=== PATIENT | male | born 1985 | race Caucasian/White ===

== ENCOUNTER 2018-12-28 19:19 | Emergency (ER) | payer OTHER ==
[2018-12-28 19:42] VITALS: BP 140/68
--- NOTE | 2018-12-28 20:08 | ED Physician Documentation ---
PD HPI MALE - Stated complaint Stated Complaint: MALE /POSTERIOR - Chief complaint Chief Complaint: Abd Pain - History obtained from History obtained from: Patient - History of Present Illness Timing - onset: How many days ago (5) Timing - duration: Days (5) Timing - details: Gradual onset ( worsening), Constant, Still present in ED Pain level now: 5 Associated symptoms: Abdominal pain (Feels constipated). No: Dysuria, Urinary frequency, Unable to urinate, Hematuria, Discharge PD HPI MALE CONTRIB FACTORS: Sexually active Similar symptoms before: Has not had sx before Recently seen: Not recently seen - Additional information Additional information: This is a 33-year-old man who presents with complaints that he has pain in his "butt". He thinks is a hemorrhoid. It started about 5 days ago but the pain is been getting increasingly more severe since then it is now about a 4-5 out of 10. He started using baby wipes immediately and applying Preparation H but it is not getting any better. He has not seen any blood. Denies history of hemorrhoids. Says it is very painful to sit directly down and any increase in intra-abdominal pressure such as coughing or trying to bear down for a bowel movement is very very painful. He said no nausea vomiting. No fever. He has had some lower abdominal discomfort and just a little bit of urine discomfort right as he starts the urine stream but no hematuria or penile discharge. He has been sitting in a hot bath with provided some relief. Review of Systems Constitutional: denies: Fever GI: reports: Abdominal Pain, Constipation. denies: Nausea, Vomiting, Bloody / black stool : denies: Dysuria, Frequency, Hematuria, Discharge PD PAST MEDICAL HISTORY - Present Medications Home Medications: Ambulatory Orders Medication Instructions Recorded Confirmed Dextroamphetamine/Amphetamine 10 mg PO DAILY 12/28/18 12/28/18 [Adderall 10 mg Tablet] Dextroamphetamine/Amphetamine 25 mg PO DAILY 12/28/18 12/28/18 [Adderall Xr 25 mg Capsule] Docusate Sodium 250Mg Capsule 250 mg PO DAILY #30 capsule 12/28/18 [Colace 250Mg Capsule] Hydrocodone/Acetaminophen 1 - 2 each PO Q6H PRN #14 tablet 12/28/18 [Hydrocodon-Acetaminophen 5-325] Loratadine [Claritin] 10 mg PO DAILY 12/28/18 12/28/18 Phenylephrine HCl/[place] Butter 1 each RC BID #10 supp.rect 12/28/18 [Preparation H Suppository] RX: Acyclovir 200 mg PO 12/28/18 - Allergies Allergies/Adverse Reactions: Allergies Allergy/AdvReac Type Severity Reaction Status Date / Time No Known Drug Allergies Allergy Verified 12/28/18 19:42 PD ED PE NORMAL - Vitals Vital signs reviewed: Yes (Well-developed well-nourished pleasant 33-year-old man he is notably sittin) - General General: Alert and oriented X 3, No acute distress, Well developed/nourished - HEENT HEENT: Atraumatic - Cardiac Cardiac: RRR, No murmur - Abdomen Abdomen: Normal bowel sounds, Soft, Other (There was some tenderness in the left lower quadrant. He states it makes him feel like he has to have a bowel movement.) - Male Male : Deferred - Back Back: Other (The skin in the gluteal crease is slightly inflamed which I believe to be from the baby wipes and the moisture associated with that. There is a thrombosed internal hemorrhoid at the 9 o'clock position that is exquisitely tender.) - Derm Derm: Normal color, Warm and dry, No rash - Neuro Neuro: Alert and oriented X 3 Results - Vitals Vitals: Vital Signs - 24 hr 12/28/18 19:37 Temperature 36.7 C Heart Rate 71 Respiratory 15 Rate Blood Pressure 140/68 H O2 Saturation 100 Oxygen O2 Source Room air Procedures - General procedure General procedure: Incision and drainage of thrombosed hemorrhoid.The hemorrhoid and anus were prepped with Betadine. Anesthesia was achieved with 1% lidocaine and an incision was made in the hemorrhoid was able to milk out quite a few clots. There was still some clot and it felt like there was a second hemorrhoid after I decompressed the first 1 so that one was also anesthetized and incised. I was able to milk out quite a bit more clot from that one as well. Patient tolerated this well although he did get very diaphoretic. We did end up giving him 2mg of Dilaudid IM for the pain. PD MEDICAL DECISION MAKING - ED course Complexity details: d/w patient, d/w family ED course: I discussed with the patient that I do not think this is going to get better with topical treatments and he will feel great relief if we incised and drained that hemorrhoid and he is agreeable. Departure - Departure Disposition: 01 Home, Self Care Clinical Impression: Hemorrhoid thrombosis Condition: Good Instructions: ED Hemorrhoids Prescriptions: Docusate Sodium 250Mg Capsule [Colace 250Mg Capsule] 250 mg PO DAILY #30 capsule Hydrocodone/Acetaminophen [Hydrocodon-Acetaminophen 5-325] 1 - 2 each PO Q6H PRN #14 tablet PRN Reason: pain Phenylephrine HCl/[place] Butter [Preparation H Suppository] 1 each RC BID #10 supp.rect Comments: Do an Epsom salt sitz baths 2-3 times a day. Take ibuprofen if needed for pain. Use the suppository twice a day and after each bowel movement. Take the stool softener to prevent further constipation. Follow-up with your primary care provider for recheck in 2-3 days if your symptoms persist. Take the hydrocodone if needed for pain but do not drive or operate machinery if taking. Discharge Date/Time: 12/28/18 21:42
[2018-12-28] MEDS ORDERED: BUFFERED LIDOCAINE 10 ML SYRINGE SUBQ STA (20:26)
[2018-12-28] MEDS ORDERED: HYDROmorphone 2 MG/ML VIAL ONE (21:14)
[2018-12-28] MEDS ORDERED: PROMETHAZINE 25 MG TABLET ONE (21:15)
[2018-12-28] MEDS ORDERED: HYDROmorphone 2 MG/ML VIAL IM STA (21:38)
[2018-12-28] MEDS ORDERED: PROMETHAZINE 25 MG TABLET PO STA (21:39)
== END 2018-12-28 21:42 | disposition home or self-care (01) ==
LOC: ED 19:19
DX: K64.5 Perianal venous thrombosis (principal)
CPT/HCPCS: 46083; 96372; 99281; 99283; J1170; Q0169

== ENCOUNTER 2018-12-31 19:04 | Emergency (ER) | payer OTHER ==
--- NOTE | 2018-12-31 21:12 | ED Physician Documentation ---
History of Present Illness - Stated complaint Stated Complaint: WOUND CHECK - Chief complaint Chief Complaint: General - History obtained from History obtained from: Patient - History of Present Illness Timing: How many days ago (3) Pain level max: 0 Pain level now: 0 - Additonal information Additional information: 33-year-old male had a hemorrhoid incised and drained a few. Has no complaints. No pain. No fevers. Review of Systems Constitutional: denies: Fever PD PAST MEDICAL HISTORY - Present Medications Home Medications: Ambulatory Orders Medication Instructions Recorded Confirmed Acyclovir 200 mg PO 12/28/18 Dextroamphetamine/Amphetamine 10 mg PO DAILY 12/28/18 12/28/18 [Adderall 10 mg Tablet] Dextroamphetamine/Amphetamine 25 mg PO DAILY 12/28/18 12/28/18 [Adderall Xr 25 mg Capsule] Docusate Sodium 250Mg Capsule 250 mg PO DAILY #30 capsule 12/28/18 [Colace 250Mg Capsule] Hydrocodone/Acetaminophen 1 - 2 each PO Q6H PRN #14 tablet 12/28/18 [Hydrocodon-Acetaminophen 5-325] Loratadine [Claritin] 10 mg PO DAILY 12/28/18 12/28/18 Phenylephrine HCl/[place] Butter 1 each RC BID #10 supp.rect 12/28/18 [Preparation H Suppository] - Allergies Allergies/Adverse Reactions: Allergies Allergy/AdvReac Type Severity Reaction Status Date / Time No Known Drug Allergies Allergy Verified 12/28/18 19:42 - Social History Does the pt smoke?: No Smoking Status: Never smoker PD ED PE NORMAL - Vitals Vital signs reviewed: Yes - General General: Alert and oriented X 3, No acute distress - Derm Derm: Warm and dry, Other (Normal-appearing wound. No evidence of infection.) - Neuro Neuro: Alert and oriented X 3 Results - Vitals Vitals: Vital Signs - 24 hr 12/31/18 12/31/18 19:17 21:26 Temperature 36.7 C 36.9 C Heart Rate 65 61 Respiratory 20 16 Rate Blood Pressure 131/76 H 120/78 O2 Saturation 99 100 Oxygen O2 Source Room air PD MEDICAL DECISION MAKING - ED course Complexity details: reviewed old records, considered differential, d/w patient ED course: Warnings of infection and instructions on wound care given at bedside. Patient counseled regarding signs and symptoms for which I believe and urgent re- evaluation would be necessary. Patient with good understanding of and agreement to plan and is comfortable going home at this time This document was made in part using voice recognition software. While efforts are made to proofread this document, sound alike and grammatical errors may occur. Departure - Departure Disposition: 01 Home, Self Care Clinical Impression: Visit for wound check Condition: Good Instructions: ED Wound Care Follow-Up: your,doctor as needed [Other] Comments: Return if you worsen. continue your current medications. Discharge Date/Time: 12/31/18 21:27
[2018-12-31 21:28] VITALS: BP 120/78
== END 2018-12-31 21:27 | disposition home or self-care (01) ==
LOC: ED 19:04
DX: K64.9 Unspecified hemorrhoids (principal); Z51.89 Encounter for other specified aftercare
CPT/HCPCS: 99282; 99283